=== PATIENT | male | born 1950 | race Caucasian/White ===

== ENCOUNTER 2019-08-30 20:02 | Emergency (ER) | payer OTHER ==
[~2019-08-30] VITALS: Ht 180.3 cm; Wt 88.5 kg
[2019-08-30 20:02] VITALS: BP_SYST 146
--- NOTE | 2019-08-30 20:20 | NUR ---
Placed in room 05 . Placed on cardiac monitor technician, blood pressure machine and pulse oximeter. To gown for exam. Side rails up.
[2019-08-30] MEDS ORDERED: NITROGLYCERIN 0.4 MG TAB.SUBL SL ONE (20:30)
[2019-08-30] MEDS ORDERED: ASPIRIN 81 MG TAB.CHEW PO ONE (20:30)
--- NOTE | 2019-08-30 20:30 | NUR ---
ER Dr. Kunz at bedside examining patient.
--- NOTE | 2019-08-30 20:50 | NUR ---
Lab at bedside.
--- NOTE | 2019-08-30 20:57 | NUR ---
# 18 gauge angiocath placed to R AC. Use of asceptic technique. Opsite placed over site. Blood return noted. Flushed with 10 cc of normal saline. No evidence of infiltration noted. Patient tolerated well.
--- NOTE | 2019-08-30 20:57 | NUR ---
Pt presents to ER with with c/o right substernal chest pain. Pt A&Ox4. Pt states chest pain is in the right chest and radiates to under the right arm pit and right shoulder blade. Pt states pain is exacerbated by movement. Pt states pain is 9/10. Pt states no trauma occurred prior to pain. Pt states father yesterday and stress has been high in family. Pt states no medications were taken to relieve pain. Breath sounds bilaterally clear with no use of accessory muscles. Will continue to monitor.
[2019-08-30 21:09] LABS: BASOPHILS % (AUTO) 0.7 % (0.0-2.0); EOSINOPHILS # (AUTO) 0.1 K/uL (0.0-0.4); EOSINOPHILS % (AUTO) 2.1 % (0.0-4.0); HEMATOCRIT 37.1 % (36-54); HEMOGLOBIN 12.1 g/dL (14.0-18.0); LYMPHOCYTES # (AUTO) 1.9 K/uL (1.0-5.5); LYMPHOCYTES % (AUTO) 36.9 % (20.5-51.5); MEAN CORPUSCULAR HEMOGLOBIN 28 pg (27-31); MEAN CORPUSCULAR HGB CONC 33 % (32-36); MEAN CORPUSCULAR VOLUME 86 fL (79.0-98.0); MONOCYTES # (AUTO) 0.6 K/uL (0.0-1.0); MONOCYTES % (AUTO) 11.2 % (1.7-9.3); NEUTROPHILS # (AUTO) 2.6 K/uL (1.8-7.7); NEUTROPHILS % (AUTO) 49.1 % (40.0-70.0); PLATELET COUNT (AUTO) 159 K/uL (130-430); RED BLOOD CELL COUNT(AUTO) 4.32 MIL/uL (4.2-6.2); RED CELL DISTRIBUTION WIDTH 15.3 % (9.0-15.0); WHITE BLOOD COUNT (AUTO) 5.2 K/uL (4.8-10.8)
[2019-08-30 21:12] LABS: CALCIUM 8.7 mg/dL (8.4-11.0); CREATININE 0.96 mg/dL (0.55-1.30); POTASSIUM 3.6 mmol/L (3.5-5.1)
--- NOTE | 2019-08-30 21:12 | NUR ---
Radiology at bedside.
[2019-08-30 21:13] LABS: INR 1.1 (0.80-1.20); PROTHROMBIN TIME 10.7 SECS (9.5-12.5)
[2019-08-30 21:18] LABS: ALBUMIN 3.4 g/dL (3.4-4.8); TOTAL BILIRUBIN 0.6 mg/dL (0.0-1.0)
--- NOTE | 2019-08-30 21:42 | NUR ---
Assisted pt to bathroom. Pt ambulated with steady gait. Will continue to monitor.
[2019-08-30 21:55] LABS: BILIRUBIN,URINE NEGATIVE (NEGATIVE); BLOOD, URINE NEGATIVE (NEGATIVE); CLARITY/URINE CLEAR (CLEAR); COLOR,URINE YELLOW (YELLOW); GLUCOSE,URINE NEGATIVE (NEGATIVE); KETONES,URINE NEGATIVE (NEGATIVE); LEUKOCYTE ESTERASE ,URINE NEGATIVE (NEGATIVE); NITRITE, URINE NEGATIVE (NEGATIVE); PROTEIN URINE NEGATIVE (NEGATIVE); UROBILINOGEN,URINE 0.2 (0.2-1.0)
--- NOTE | 2019-08-30 22:29 | NUR ---
Pt brother at bedside.
--- NOTE | 2019-08-30 23:00 | NUR ---
ER Dr. Kunz at bedside explaining results to patient.
--- NOTE | 2019-08-31 00:14 | NUR ---
Lab at bedside obtaining second troponin.
[2019-08-31 01:20] VITALS: BP_SYST 121
--- NOTE | 2019-08-31 01:20 | NUR ---
Patient given written and verbal discharge instructions and verbalizes understanding. ER MD Kunz discussed with patient the results and treatment provided. Patient in stable condition. ID arm band removed. IV catheter removed intact and dressing applied, no active bleeding. No Rx given. Patient educated on pain management and to follow up with PMD. Pain Scale 0/10. Opportunity for questions provided and answered. Medication side effect fact sheet provided.
== END 2019-08-31 01:20 | disposition home or self-care (01) ==
LOC: SED 20:02
DX: R07.89 Other chest pain (principal); K21.9 Gastro-esophageal reflux disease without esophagitis; I10 Essential (primary) hypertension; E78.00 Pure hypercholesterolemia, unspecified
CPT/HCPCS: 36415; 71045; 80053; 81003; 82550-TC; 83880; 84484; 85025; 85379; 85610-TC; 93005; 99284; 99285